=== PATIENT | male | born 1950 | race Caucasian/White ===

== ENCOUNTER 2019-06-11 11:02 | Outpatient (CLI) | payer MEDICARE, BC ==
--- NOTE | 2019-06-11 11:47 | ULT ---
Exam: Testicular ultrasound HISTORY: Palpable area in the left scrotum. COMPARISON: None TECHNIQUE: Sagittal and transverse imaging of the left and right hemiscrotum are performed. Testicula r Doppler is performed with grayscale, color-flow, Doppler imaging and spectral waveform analysis. FINDINGS: Right hemiscrotum: Testicle: Homogeneous echotexture. No intratesticular masses. Right testicle measurements: 3.0 x 4.8 x 2.6 cm Right epididymis: Normal echotexture. Right epididymis measurements: 1.5 x 1.2 cm Hydrocele: None Left hemiscrotum: Left testicle: Homogeneous echotexture. No intratesticular masses. Left testicle measurements: 2.5 x 5.0 x 3.5 cm Left epididymis: Normal echotexture. Left epididymis measurements:0.9 x 1.2 cm. There is a well-circumscribed hypoechoic focus adjacent to the head of the epididymis with some septations. Lesion measures 2.7 x 1.3 x 1.9 cm and corresponds to the palpable focus. Hydrocele: None Testicular Doppler: There is symmetric vascular flow to the left and right testicle. IMPRESSION: 1. No evidence of a solid mass in the left or right testicle. 2. Complex cystic lesion in the left hemiscrotum, adjacent to the epididymal head corresponding to th e palpable focus. Transcribed Date/Time: 06/11/2019 11:54 AM
== END 2019-06-11 11:03 | disposition home or self-care (01) ==
LOC: SCSULT 11:02
PROVIDERS: ATTEND Urology
DX: N43.40 Spermatocele of epididymis, unspecified (principal); L72.9 Follicular cyst of the skin and subcutaneous tissue, unspecified
CPT/HCPCS: 76870; 93976